=== PATIENT | female | born 1935 | race Caucasian/White ===

== ENCOUNTER → 2017-08-14 | Day surgery (SDC) | payer OTHER ==
[~2017-08-14] VITALS: Ht 167.6 cm; Wt 57.6 kg
[~2017-08-14] MED LIST: ADVAIR 250-501 EACH INH; AMLODIPINE BESY10 MG PO; ASPIRIN81 M2 PO; FOLIC ACID1 MG PO; HYDREA 500 MG500 M1 PO; MULTIVITAMINS1 EAC4 PO
== END | disposition home or self-care (01) ==
LOC: TBA 05:35 → OR 05:35
DX: C44.119 Basal cell carcinoma of skin of left eyelid, including canthus (principal); Z53.8 Procedure and treatment not carried out for other reasons; J43.9 Emphysema, unspecified; Z87.891 Personal history of nicotine dependence; I10 Essential (primary) hypertension; I73.89 Other specified peripheral vascular diseases; Z85.828 Personal history of other malignant neoplasm of skin; Z98.41 Cataract extraction status, right eye; Z98.51 Tubal ligation status; Z91.040 Latex allergy status; Z88.0 Allergy status to penicillin; Z88.8 Allergy status to other drugs, medicaments and biological substances; Z79.82 Long term (current) use of aspirin; Z79.899 Other long term (current) drug therapy

== ENCOUNTER 2017-11-16 05:35 | Day surgery (SDC) | payer OTHER ==
[~2017-11-16] VITALS: Ht 165.1 cm; Wt 57.6 kg
--- NOTE | ~2017-11-16 | PATH ---
[facility] [address] [place] [address] PATHOLOGY RPT PROCEDURE Name: GISELE HOLT Room #: DEP [facility]..#: [id number] Admission: 11/16/17 Date of : 37 Discharge: 11/16/17 Report #: [id number] Path Case #: [id number] [facility] Accession Number: [id number] . 01 Material submitted: . PART A: BCCA LEFT LOWER LID-FS PART B: LATERAL MARGIN-FS PART C: MEDIAL MARGIN-FS PART D: ADDITIONAL MEDIAL MARGIN-FS . 01 Clinical history: . Basal cell carcinoma left lower lid . 02 Diagnosis: A. Skin, left lower lid, excision: - BASAL CELL CARCINOMA. - EXTENDS TO SIDE MARGINS. . B. Skin, lateral margin, re-excision: -Negative for invasive carcinoma at en face margin. . C. Skin, medial margin, re-excision: - BASAL CELL CARCINOMA PRESENT AT ENFACE MARGIN. . D. Skin, additional medial margin, re-excision: - Negative for invasive carcinoma at enface margin. (IUV:pit 11/20/2017) QTP/11/21/2017 . 02 Electronically signed: . Wendi Whitley MD, Pathologist NPI- [id number] . 01 Gross description: . A. Received fresh from the OR labeled with the patient's name, and "BCCA left lower lid" consists of an oriented oval skin excision measuring 1.9 x 0.9 x 0.6 cm. There is an ulcerated lesion on the surface present. The specimen is oriented as lateral, inferior, medial and superior by Dr. Pollard. The margins are further designated as 12:00, 3:00, 6:00 and 9:00. The 12 to 3 to 6:00 is inked black, the 6 to 9:00 is inked blue and 9 to 12:00 is inked orange. The lateral margin, the 12:00 is additionally tagged with orange ink. At this point the specimen is serially sectioned into five pieces. Three pieces are submitted as FSA1, subsequently submitted for permanent sections as A1. Two pieces are submitted for frozen section as FSA2, subsequently submitted for permanent sections [place] [address] PATHOLOGY RPT PROCEDURE Name: GISELE HOLT Room #: DEP [facility].#: [id number] Admission: 11/16/17 Date of : 37 Discharge: 11/16/17 Report #: [id number] Path Case #: [id number] B. Received fresh from the OR labeled with the patient's name, and "lateral margin" consists of a thin strip of skin measuring 0.6 x 0.3 x 0.2 cm. The specimen is additionally tagged as superior conjunctiva inferior and skin. The superior half is inked black and the inferior half is inked orange. At this point the specimen is submitted en face for frozen section as FSB1, subsequently submitted for permanent sections as B1. . C. Received fresh from the OR labeled with the patient's name, and "medial margin" consists of a thin strip of skin measuring 1.1 x 0.5 x 0.2 cm. The specimen is additionally oriented by Dr. Pollard as skin conjunctiva inferior and superior. The superior half of the specimen is inked black and the inferior half of the specimen is inked orange. The specimen is additionally tagged with blue to indicate medial margin and submitted for frozen section en face as FSC1, subsequently submitted for permanent sections as C1. . D. Received fresh from the OR labeled with the patient's name, and "additional medial margin" consists of a 0.5 x 0.3 x 0.2 cm fragment of skin. This new margin is submitted en face for frozen section as FSD1, subsequently submitted for permanent sections as D1. (IUV/db; 11/17/17) . Frozen Section Diagnosis: (Wendi Whitley M.D.) . FSA1. Skin, BCCA left lower lid, excision: - BASAL CELL CARCINOMA. - EXTENDS TO SIDE MARGINS. . FSB1. Skin, lateral margin, re-excision: - Negative for invasive carcinoma at en face margin. . FSC1. Skin, medial margin, re-excision: - BASAL CELL CARCINOMA PRESENT AT EN FACE MARGIN. . FSD1. Skin, additional medial margin, re-excision: - Negative for invasive carcinoma. . These findings are discussed with Dr. Nate Pollard in OR6 at [facility] and a written report is placed in the patient's chart. (IUV/db; 11/17/17) . Frozen section performed at [facility],[address] [place] [id number]. [facility]/LB[facility] . 02 Pathologist provided ICD-10: [address] [address] PATHOLOGY RPT PROCEDURE Name: GISELE HOLT Room #: DEP [facility].R.#: [id number] Admission: 11/16/17 Date of : 37 Discharge: 11/16/17 Report #: [id number] Path Case #: [id number] C44.119, C44.91 . 02 CPT . 662829, [id number], [id number], [id number], [id number], [id number], [id number], [id number] Performed at: 01 [facility] [address], [place], [place] [id number] MD Иван Pandey MD Phone: [phone] Performed at: 02 [facility] [place] [address] [place], [place] [id number] MD Wendi Whitley MD Phone: [phone]
--- NOTE | ~2017-11-16 | O ---
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 SURGEON: Nate Pollard M.D. DESIGN AGENT: None. ANESTHESIA: General. ESTIMATED BLOOD LOSS: 10 mL. INDICATIONS FOR SURGERY: This pleasant 82-year-old woman has a biopsy proven basal cell carcinoma in her central left lower lid that encompasses the entire lower lid. She has multiple facial hemangiomas including the medial and lateral canthi and on the cheek. The only normal eyelid that she had that was not affected by the hemangioma on the left lower site is now completely involved with cancer. She presents today for excision of this tumor with frozen sections and repair of that defect. She understands that her reconstruction will be much more challenging than typical because of the facial hemangiomas and the large size of the tumor. Informed consent was obtained to include but not limit to the potential risk for loss of vision, bleeding, infection, failure to improve the problem, the potential need for further surgery or treatment and potential radiation therapy. DESCRIPTION OF PROCEDURE: The patient was taken to the operating room, where general anesthesia was administered. The patient was subsequently anesthetized with Xylocaine with epinephrine, anesthetizing the left lower lid, the left cheek, the medial canthus, the lateral canthus, the left upper lid and then the right supraclavicular area anticipating a full-thickness skin graft. The patient was then prepped and draped in the usual sterile fashion. A fine-tip skin marking pen was then utilized to outline what appeared to be non-cancer involved benign tumor in the angiomas medial and lateral to the known [facility] [address] [place] [address] OPERATIVE REPORT Name: GISELE HOLT Room #: DEP [facility] M.R.#: [id number] Admission: 11/16/17 Attend Phys: Nate Pollard MD Discharge: 11/16/17 Date of : 37 Report #: [id number] basal cell carcinoma. The incisions were then made vertically across the eyelid margin and drawn down on to the premalar tissues. Moderately brisk bleeding ensued after each incision as would be anticipated because of the benign vascular tumors at each margin. The specimen was oriented for the pathologist and the underlying patient's background was discussed with her. Hemostasis was achieved in the field with diligent pinpoint monopolar cautery, but was not easily accomplished. There tended to be general ooze from the wound no matter what I did. The pathologist snap froze that tissue and found the interpretation of the margins to be quite challenging. She asked for additional medial and lateral pieces, which I gave her. An additional lateral portion of tissue was taken, which included all of the lateral canthus and part of the infratemporal fossa skin. This was involved by hemangioma. It was oriented for the pathologist. An additional medial specimen was taken, which included all of the medial canthal tendon. Hemostasis was achieved once again as best possible, with gentle pressure placed to try to slow the oozing down. The pathologist snap froze those specimens and she felt that the lateral margin was clear, but the medial margin was definitely positive. Additional tissue was then taken medially, extending across the bridge of the nose, which had yet another hemangioma. This tissue was taken down onto the periosteum of the nasal bridge. The pathologist froze that tissue while I tried to drive the surgical field. She found that this margin was clear, but it extended down on to periosteum. The defect medially was then inspected and a musculocutaneous flap developed from the cheek to rotate into position to correct the medial canthus and the medial aspect of the lid to allow a three-dimensional coverage of the lower lid. Hemostasis was then re-achieved as best possible and the flap secured with interrupted deep 6-0 Vicryl sutures and then 6-0 plain gut sutures more superficially. The left upper lid was then everted and an incision made 3.5 mm superior to the eyelid margin through the tarsal plate. A vascularized tarsoconjunctival flap was then developed across the entire width of the left upper lid, taking as much tissue as possible to draw down into the lower eyelid since all of the lower lid was gone. The flap was dissected as thin as possible in the conjunctiva plane and made as wide as possible as well. It was secured into the lower eyelid with cardinal bites of 6-0 Vicryl suture. A 6-0 Vicryl sutures were then used to attach the inferior portion of the wound to soft tissue in the premalar space. A large full-thickness skin graft was then outlined in the right supraclavicular area. Incisions were then made with a 15 blade and a full-thickness skin graft harvested utilizing thin section techniques. That wound was dried, which was [facility] [address] [place] [address] OPERATIVE REPORT Name: GISELE HOLT Room #: DEP [facility].#: [id number] Admission: 11/16/17 Attend Phys: Nate Pollard MD Discharge: 11/16/17 Date of : 37 Report #: [id number] quite easy compared to the eyelid. The subcutaneous structures in that area were closed with interrupted 5-0 Vicryl sutures deep and then a 5-0 subcuticular Prolene. That wound was dressed with Mastisol and an Op-Site. The full-thickness skin graft was then defatted. It was then secured to its bed in the left lower lid and infratemporal fossa with 7-0 Vicryl sutures and 6-0 plain gut sutures. Generous erythromycin ophthalmic ointment was then placed over the entire left eye. A Telfa pad was placed followed by multiple eye pads, which were held under gentle pressure with silk tape and Mastisol. The patient was subsequently transported to the recovery area having tolerated the procedure adequately, with no gross surgical complications being noted. Refer to Russell's followup. <ELECTRONICALLY SIGNED> By: Nate Pollard MD 11/20/17 0620 [id number] Nate Pollard MD /nt
[~2017-11-16 05:35] MED LIST changes: +CATAPRES0.2 MG PO
[2017-11-16 07:33] VITALS: BP 171/85
== END 2017-11-16 10:40 | disposition home or self-care (01) ==
LOC: TBA 05:35 → OR 05:35
DX: C44.119 Basal cell carcinoma of skin of left eyelid, including canthus (principal); C44.319 Basal cell carcinoma of skin of other parts of face; C44.311 Basal cell carcinoma of skin of nose; Q82.8 Other specified congenital malformations of skin; I10 Essential (primary) hypertension; I73.9 Peripheral vascular disease, unspecified; J43.9 Emphysema, unspecified; Z88.0 Allergy status to penicillin; Z88.8 Allergy status to other drugs, medicaments and biological substances; Z88.1 Allergy status to other antibiotic agents; Z91.040 Latex allergy status; Z79.899 Other long term (current) drug therapy; Z79.82 Long term (current) use of aspirin; Z87.891 Personal history of nicotine dependence; Z90.89 Acquired absence of other organs; Z98.890 Other specified postprocedural states; Z98.51 Tubal ligation status; Z98.41 Cataract extraction status, right eye
CPT/HCPCS: 50010; 50101; 50386; 50398; 51636; 56527; 56528; 56531; 62110; 62900; 64037; 70005